=== PATIENT | female | born 1980 | race Caucasian/White ===

== ENCOUNTER 2017-07-28 09:16 | Emergency (ER) | payer MEDICAID, OTHER ==
[~2017-07-28] VITALS: Ht 162.6 cm; Wt 59.1 kg
[2017-07-28 09:21] VITALS: BP 134/72
== END 2017-07-28 10:35 | disposition home or self-care (01) ==
LOC: ER 09:16
DX: M21.372 Foot drop, left foot (principal); Z88.8 Allergy status to other drugs, medicaments and biological substances
CPT/HCPCS: 29515; 99283; A6449